=== PATIENT | male | born 1940 | race Caucasian/White ===

== ENCOUNTER 2018-09-06 11:01 | Emergency (ER) | payer MEDICARE, OTHER ==
--- NOTE | 2018-09-06 11:04 | ER Report ---
History and Physical Time Seen By MD: 11:04 HPI/ROS CHIEF COMPLAINT: Dyspnea HISTORY OF PRESENT ILLNESS: Patient is a 78-year-old male who lives in [facility]. He is been in [place] for the past 2 weeks doing hunting with his sons. Patient about 4 days ago developed some upper respiratory symptoms and dyspnea on exertion. The dyspnea on exertion worsens when he arrived in the [place] today. Because of his prior cardiac history he sided come to the emergency department for evaluation. She denies actual chest pain or pressure at more dyspnea on exertion. He denies fevers or chills or productive cough. REVIEW OF SYSTEMS: Constitutional: No fever, no chills. Eyes: No discharge. ENT: No sore throat. Cardiovascular: Dyspnea on exertion Respiratory: No cough, no shortness of breath. Gastrointestinal: No abdominal pain, no vomiting. Genitourinary: No hematuria. Musculoskeletal: No back pain. Skin: No rashes. Neurological: No headache. Allergies: Coded Allergies: No Known Drug Allergies (Unverified , 09/06/18) Home Meds Reported Medications Torsemide (DEMADEX) 20 Mg Tablet, 20 MG PO DAILY 09/06/18 Levothyroxine Sodium (SYNTHROID) 175 Mcg Tablet, 175 MCG PO QDAY 09/06/18 Sotalol Hcl (SOTALOL) 120 Mg Tablet, 120 MG PO BID 09/06/18 Rivaroxaban 20 Mg (XARELTO 20 MG) 20 Mg Tablet, 20 MG PO DAILY, TAB 09/06/18 Potassium Chloride (POTASSIUM CHLORIDE) 20 Meq Tab.er.prt, 20 MEQ PO QDAY 09/06/18 Isosorbide Dinitrate (ISOSORBIDE DINITRATE) 10 Mg Tablet, 10 MG PO TID 09/06/18 Hydralazine Hcl (HYDRALAZINE HCL) 50 Mg Tablet, 50 MG PO BID, TAB 09/06/18 Finasteride (FINASTERIDE) 5 Mg Tablet, 5 MG PO QDAY 09/06/18 Doxazosin Mesylate (DOXAZOSIN MESYLATE) 4 Mg Tablet, 4 MG PO QDAY 09/06/18 Atorvastatin Calcium (LIPITOR) 20 Mg Tablet, 1 TAB PO QDAY, TAB 09/06/18 Past Medical/Surgical History Past medical history for hypothyroidism, paroxysmal atrial fibrillation hypercholesterolemia. Constitutional Vital Sign - Last 24 Hours 10/15/09/06/18 09/06/18 09/06/18 11:06 11:06 11:15 11:23 Temp 97.8 Pulse 68 65 Resp 24 26 B/P (MAP) 178/121 184/91 (122) Pulse Ox 96 96 O2 Delivery Nasal Cannula O2 Flow Rate 3.0 09/06/18 09/06/18 09/06/18 09/06/18 11:30 11:45 12:00 12:15 Pulse 57 48 Resp 14 20 B/P (MAP) 163/90 (114) 165/90 (115) 160/79 (106) 161/92 (115) Pulse Ox 98 09/06/18 09/06/18 09/06/18 09/06/18 12:30 12:45 13:00 13:15 Pulse 46 48 Resp 16 12 B/P (MAP) 176/102 (126) 183/98 (126) 181/92 (121) 166/134 (145) Pulse Ox 95 95 09/06/18 09/06/18 09/06/18 09/06/18 13:30 13:45 14:00 14:15 Pulse 46 57 44 43 Resp 16 15 8 13 B/P (MAP) 180/101 (127) 176/101 (126) 171/93 (119) 164/96 (118) Pulse Ox 96 92 97 09/06/18 09/06/18 14:25 14:30 Pulse 53 Resp 18 Pulse Ox 93 93 O2 Delivery Room Air Physical Exam General/Constitutional: Patient is awake, alert, nontoxic and in no acute respiratory distress. Head: Normocephalic and atraumatic. Eyes: Conjunctival clear, Pupils are equal and reactive to light. Extraocular muscles are intact and symmetrical. Sclera are clear and anicteric. Ears:External canals are clear. Tympanic membranes are clear with normal landmarks and light reflex. Nares: No rhinorrhea or bleeding. Turbinates are pink and moist. Oropharyngeal: Mucous membranes are moist. There is no pharyngeal erythema or exudate. There are no palatal petechiae. Uvula is midline and symmetrical. Neck: Supple, no adenopathy. Cardiovascular: Heart is regular rate and rhythm without audible murmurs, rubs or gallops. Pulmonary: Lungs are clear to auscultation bilaterally. There are no wheezes, rales, or rhonchi. Chest rise is symmetrical Abdomen: Soft, nontender, no guarding or peritoneal signs. Extremities: No gross deformities, No peripheral cyanosis. Able to move all 4 extremities. Neuro: Alert and oriented X3, Cranial nerves 2 thru 12 are intact and symmetric al. Patient has normal gait. Skin: No rashes, skin is warm dry and well perfused. Medical Decision Making Data Points Result Diagram: 09/06/18 1120 09/06/18 1120 Laboratory Hematology Test 09/06/18 11:20 09/06/18 13:17 Red Blood Count 4.02 M/uL (4.00-5.60) Mean Corpuscular Volume 92.2 fL (80.0-96.0) Mean Corpuscular Hemoglobin 32.0 pg (26.0-33.0) Mean Corpuscular Hemoglobin Concent 34.7 g/dL (32.0-36.0) Red Cell Distribution Width 13.9 % (11.5-14.5) Mean Platelet Volume 8.6 fL (7.2-11.1) Neutrophils (%) (Auto) 73.2 % (39.4-72.5) Lymphocytes (%) (Auto) 15.8 % (17.6-49.6) Monocytes (%) (Auto) 7.9 % (4.1-12.4) Eosinophils (%) (Auto) 2.4 % (0.4-6.7) Basophils (%) (Auto) 0.7 % (0.3-1.4) Nucleated RBC Relative Count (auto) 0.0 /100WBC Neutrophils # (Auto) 6.5 K/uL (2.0-7.4) Lymphocytes # (Auto) 1.4 K/uL (1.3-3.6) Monocytes # (Auto) 0.7 K/uL (0.3-1.0) Eosinophils # (Auto) 0.2 K/uL (0.0-0.5) Basophils # (Auto) 0.1 K/uL (0.0-0.1) Nucleated RBC Absolute Count (auto) 0.00 K/uL Prothrombin Time 17.1 seconds (12.0-14.4) Prothromb Time International Ratio 1.38 Activated Partial Thromboplast Time 39 seconds (23-35) D-Dimer Quantitative (PE/DVT) 0.38 ug/ml (0-0.50) Sodium Level 138 mmol/L (137-145) Potassium Level 4.0 mmol/L (3.5-5.0) Chloride Level 102 mmol/L (98-107) Carbon Dioxide Level 30 mmol/L (22-30) Blood Urea Nitrogen 18 mg/dl (9-21) Creatinine 1.20 mg/dl (0.66-1.25) Glomerular Filtration Rate Calc 58.6 Random Glucose 155 mg/dl (75-110) Calcium Level 9.0 mg/dl (8.4-10.2) Total Bilirubin 1.2 mg/dl (0.2-1.3) Aspartate Amino Transf (AST/SGOT) 29 U/L (0-35) Alanine Aminotransferase (ALT/SGPT) 42 U/L (0-56) Alkaline Phosphatase 75 U/L (0-126) B-Type Natriuretic Peptide 277 pg/ml (0-100) Total Protein 6.5 g/dl (6.3-8.2) Albumin 4.0 g/dl (3.5-5.0) Troponin I < 0.012 ng/ml Chemistry Test 09/06/18 11:20 09/06/18 13:17 White Blood Count 8.8 k/uL (4.5-11.0) Red Blood Count 4.02 M/uL (4.00-5.60) Hemoglobin 12.9 g/dL (14.0-18.0) Hematocrit 37.1 % (42.0-52.0) Mean Corpuscular Volume 92.2 fL (80.0-96.0) Mean Corpuscular Hemoglobin 32.0 pg (26.0-33.0) Mean Corpuscular Hemoglobin Concent 34.7 g/dL (32.0-36.0) Red Cell Distribution Width 13.9 % (11.5-14.5) Platelet Count 226 K/uL (150-450) Mean Platelet Volume 8.6 fL (7.2-11.1) Neutrophils (%) (Auto) 73.2 % (39.4-72.5) Lymphocytes (%) (Auto) 15.8 % (17.6-49.6) Monocytes (%) (Auto) 7.9 % (4.1-12.4) Eosinophils (%) (Auto) 2.4 % (0.4-6.7) Basophils (%) (Auto) 0.7 % (0.3-1.4) Nucleated RBC Relative Count (auto) 0.0 /100WBC Neutrophils # (Auto) 6.5 K/uL (2.0-7.4) Lymphocytes # (Auto) 1.4 K/uL (1.3-3.6) Monocytes # (Auto) 0.7 K/uL (0.3-1.0) Eosinophils # (Auto) 0.2 K/uL (0.0-0.5) Basophils # (Auto) 0.1 K/uL (0.0-0.1) Nucleated RBC Absolute Count (auto) 0.00 K/uL Prothrombin Time 17.1 seconds (12.0-14.4) Prothromb Time International Ratio 1.38 Activated Partial Thromboplast Time 39 seconds (23-35) D-Dimer Quantitative (PE/DVT) 0.38 ug/ml (0-0.50) Glomerular Filtration Rate Calc 58.6 Calcium Level 9.0 mg/dl (8.4-10.2) Total Bilirubin 1.2 mg/dl (0.2-1.3) Aspartate Amino Transf (AST/SGOT) 29 U/L (0-35) Alanine Aminotransferase (ALT/SGPT) 42 U/L (0-56) Alkaline Phosphatase 75 U/L (0-126) B-Type Natriuretic Peptide 277 pg/ml (0-100) Total Protein 6.5 g/dl (6.3-8.2) Albumin 4.0 g/dl (3.5-5.0) Troponin I < 0.012 ng/ml Coagulation Test 09/06/18 11:20 Prothrombin Time 17.1 seconds Prothromb Time International Ratio 1.38 Activated Partial Thromboplast Time 39 seconds D-Dimer Quantitative (PE/DVT) 0.38 ug/ml EKG/Imaging Monitor Interpretation: Normal Sinus Rhythm ED Course/Re-evaluation ED Course Patient had serial troponins done without any evidence of change or concern. D- dimer was negative. Suspect patient's dyspnea on exertion is altitude related. Patient does have a history of COPD we will discharge on a Combivent inhaler. Patient had no questions or concerns at time of disposition. Decision to Disposition Date: Sep 06, 2018 Decision to Disposition Time: 14:13 Depart Departure Latest Vital Signs Vital Signs Date Time Temp Pulse Resp B/P (MAP) Pulse Ox O2 Delivery O2 Flow Rate FiO2 09/06/18 14:30 53 18 93 09/06/18 14:25 Room Air 09/06/18 14:15 164/96 (118) 09/06/18 11:06 97.8 09/06/18 11:06 3.0 Impression: Primary Impression: Dyspnea Condition: Improved Disposition: HOME OR SELF-CARE Departure Forms: ER Transition Record, Home Oxygen, Nebulizer RX, Home Oxygen Company Chosen by Patient: Durable Medical Equipment-Oxygen: Oxygen Concentrator, Portable Oxygen Gas Reason for Use/Diagnosis: altitude illness; hx of CAD; SpO2 84% RA Start Date of the Order: Sep 06, 2018 Dosage or Concentration (if applicable) - LPM: 2 Route of Administration (if applicable): Nasal Cannula Frequency of Use: Continuous Duration Home O2 Required: 30 Duration Units: Days Room Air Oxygen Saturation: 84 ER Prescribing Physician's Name: Trey Casarez NPI Numbers for Local ER MDs: Leida [id number] Medications Reconciliation, Patient Portal Information Patient Instructions: Dyspnea (ED) Additional Instructions: Combivent inhaler as directed. Follow-up with your primary care provider when you returned home Problem Qualifiers Primary Impression: Dyspnea Dyspnea type: dyspnea on exertion Qualified Codes: R06.09 - Other forms of dyspnea TREY CASAREZ MD Sep 06, 2018 11:04
[2018-09-06] MEDS ORDERED: ASPIRIN 81 MG CHEW PO ONE (11:05)
[2018-09-06] MEDS ORDERED: LEVO175T38 PO (11:13)
[2018-09-06] MEDS ORDERED: DOXA4TAB58 PO (11:13)
[2018-09-06] MEDS ORDERED: HYDR50TA35 PO (11:13)
[2018-09-06] MEDS ORDERED: POTA20TA94 PO (11:13)
[2018-09-06] MEDS ORDERED: SOTA120T25 PO (11:13)
[2018-09-06] MEDS ORDERED: ISOS10TA PO (11:13)
[2018-09-06] MEDS ORDERED: ATOR20TA22 PO (11:13)
[2018-09-06] MEDS ORDERED: FINA5TAB67 PO (11:13)
[2018-09-06] MEDS ORDERED: RIVA20TA PO (11:13)
[2018-09-06] MEDS ORDERED: TORS20TA PO (11:13)
--- NOTE | 2018-09-06 11:18 | EKG ---
FACILITY: [facility] - [place] PATIENT NAME: ANAT DELVALLE : [id number] MR: [id number] V: [id number] EXAM DATE: ORDERING PHYSICIAN: MONICA TAYLOR TECHNOLOGIST: Test Reason : SOB Blood Pressure : / mmHG Vent. Rate : 063 BPM Atrial Rate : 063 BPM P-R Int : 206 ms QRS Dur : 092 ms QT Int : 514 ms P-R-T Axes : 068 031 046 degrees QTc Int : 525 ms Normal sinus rhythm Prolonged QT Borderline NM interval Abnormal ECG No previous ECGs available Confirmed by Rahat Story ([id number]) on 09/06/2018 6:32:27 PM Referred By: Confirmed By:Rahat Salinas
[2018-09-06 11:28] LABS: PLATELET COUNT, AUTOMATED 226 K/uL (150-450)
[2018-09-06 11:40] LABS: INR 1.38
--- NOTE | 2018-09-06 11:49 | RADIOLOGY IMAGING REPORT ---
FACILITY: [facility] - [place] PATIENT NAME: Alfonso Mistry : 1940 MR: [id number] V: [id number] EXAM DATE: ORDERING PHYSICIAN: MONICA TAYLOR TECHNOLOGIST: Location: [facility] Patient: Alfonso Mistry : 1940 Visit/Account:[id number] Date of Sevice: 09/06/2018 Exam type: CHEST SINGLE AP History: Chest Pain Comparison: None. Findings: There are hypoventilatory changes throughout the lungs. Coarse linear stranding throughout the right lung and left lung base may represent acute versus chronic changes. Diagnostic considerations would include scarring atelectasis or an acute infectious/inflammatory process. Also appears to be mild c ephalization of the pulmonary vascular markings. No evidence of pleural effusions. The cardiac silh ouette appears borderline enlarged. IMPRESSION: 1. Hypoventilatory changes throughout the lungs Coarse linear stranding throughout the right lung and left lung base may represent scarring, atelecta sis or an acute infectious/inflammatory process. Mild cephalization the pulmonary vascular markings and borderline cardiomegaly could represent mild p ulmonary edema. Report Dictated By: Rebekah Delgado MD at 09/06/2018 11:44 AM Report E-Signed By: Rebekah Delgado MD at 09/06/2018 11:45 AM WSN:[email or web address]
[2018-09-06 14:15] VITALS: BP 164/96
[2018-09-06] MEDS ORDERED: COMBIVENT 4 GR INHALER IH ONE (14:25)
== END 2018-09-06 14:50 | disposition home or self-care (01) ==
LOC: ER 11:25
DX: R06.02 Shortness of breath (principal)
CPT/HCPCS: 71045; 83880; 84484; 85025; 85379; 85610; 85730; 93005; 94640; 99284; A9270; J3535; 82040; 82247; 82310; 82374; 82435; 82565; 82947; 84075; 84132; 84155; 84295; 84450; 84460; 84520